=== PATIENT | female | born 1930 | race Caucasian/White ===

== ENCOUNTER 2019-04-24 01:29 | Inpatient (IN) ==
[2019-04-24 02:50] LABS: Basophils % 0.2 % (0.0-0.8); Hematocrit 37.3 VOL% (35.7-47.0); Hemoglobin 12.5 GM/DL (12.0-16.0); Immature Granulocytes % 0.6 %; Immature Granulocytes Absolute 0.06 #; Lymphocytes # 1.4 10*3/uL (1.4-4.0); Lymphocytes % 14.2 % (21.3-54.2); Mean Corpuscular HGB Conc 33.5 GM/DL (32-36); Mean Corpuscular Volume 87.1 FL (87-102); Mean Platelet Volume 10.2 FL (9.6-12.0); Platelet Count 232 T/CUMM (130-400); Red Blood Count 4.28 MC/CUMM (3.8-5.5); Red Cell Distribution Width 13.3 % (9.3-17.3)
[2019-04-24 03:04] LABS: Calcium 8.8 MG/DL (8.5-10.1); Osmolality,Calculated 279.7 MOS/KG (273-304)
[2019-04-24 03:16] LABS: Troponin I 0.162 NG/ML (0.00-0.045)
[2019-04-24] MEDS ORDERED: ENOXAPARIN 30 MG/0.3 ML SYRINGE SUBCUT STA (03:29)
[2019-04-24] MEDS ORDERED: ASPIRIN CHEW 81 MG TABLET PO STA (03:30)
[2019-04-24] MEDS ORDERED: ASPIRIN 325 MG TABLET ONE (03:41)
[2019-04-24] MEDS ORDERED: ENOXAPARIN 80 MG/0.8 ML SYRINGE SUBCUT ONE (03:41)
[2019-04-24] MEDS ORDERED: POTASSIUM CHLORIDE 20 MEQ TABLET PO STA (03:43)
[2019-04-24] MEDS ORDERED: ASPIRIN 325 MG TABLET PO STA (03:43)
[2019-04-24] MEDS ORDERED: MORPHINE 4 MG/1 ML VIAL IV PRN (06:37)
[2019-04-24] MEDS ORDERED: NITROGLYCERIN SL 0.4 MG TABLET SL PRN (06:37)
[2019-04-24] MEDS ORDERED: DOCUSATE SODIUM 100 MG CAPSULE PO PRN (06:37)
[2019-04-24] MEDS ORDERED: ALBUTEROL/IPRATROPIUM 3 ML NEB RESP TX PRN (06:37)
[2019-04-24] MEDS ORDERED: MAGNESIUM SULF RIDER 2 GM in PREMIX 1 EACH IV PRN (06:37)
[2019-04-24] MEDS ORDERED: guaiFENesin/CODEINE 5 ML LIQUID PO PRN (06:37)
[2019-04-24] MEDS ORDERED: MAGNESIUM SULF RIDER 4 GM in PREMIX 1 EACH IV PRN (06:37)
[2019-04-24] MEDS ORDERED: ACETAMINOPHEN 325 MG TABLET PO PRN (06:37)
[2019-04-24] MEDS ORDERED: ONDANSETRON 4 MG/2 ML VIAL IV PRN (06:37)
[2019-04-24] MEDS ORDERED: predniSONE 20 MG TABLET PO SCH (09:00)
[2019-04-24] MEDS ORDERED: LEVOFLOXACIN 500 MG TABLET PO SCH (09:00)
[2019-04-24] MEDS: carvediloL 3.125 MG TABLET PO SCH ×2 (10:00→21:26)
[2019-04-24] MEDS: LOSARTAN 50 MG TABLET PO SCH (10:00)
[2019-04-24] MEDS: LEVOTHYROXINE 75 MCG TABLET PO SCH (10:00)
[2019-04-24] MEDS: POTASSIUM CHLORIDE 20 MEQ TABLET PO PRN (10:00)
[2019-04-24 10:12] LABS: Troponin I 0.961 NG/ML (0.00-0.045)
[2019-04-24] MEDS ORDERED: POTASSIUM CHLORIDE 20 MEQ TABLET PO ONE (11:27)
[2019-04-24] MEDS ORDERED: diphenhydrAMINE CAP 25 MG CAPSULE PO ONE (11:27)
[2019-04-24] MEDS ORDERED: DIAZEPAM 5 MG TABLET PO ONE (11:27)
[2019-04-24] MEDS ORDERED: NITROGLYCERIN DRIP 50 MG/250 ML BOTTLE IV ONE (11:47)
[2019-04-24] MEDS ORDERED: LIDOCAINE 1% 20 ML VIAL ONE (11:47)
[2019-04-24] MEDS ORDERED: VERAPAMIL 5 MG/2 ML VIAL ONE (11:47)
[2019-04-24] MEDS: SODIUM CHLORIDE 0.45% 1,000 ML IV SCH ×2 (12:02→22:05)
[2019-04-24] MEDS ORDERED: MIDAZOLAM 2 MG/2 ML VIAL ONE (12:19)
[2019-04-24] MEDS ORDERED: HYDROmorphone 2 MG/1 ML VIAL ONE (12:19)
[2019-04-24] MEDS ORDERED: ENOXAPARIN 30 MG/0.3 ML SYRINGE ONE (12:42)
[2019-04-24] MEDS ORDERED: TIROFIBAN 5,000 MCG/100 ML PREMIX IV ONE (12:44)
[2019-04-24] MEDS ORDERED: TICAGRELOR 90 MG TABLET ONE (14:11)
[2019-04-24] MEDS ORDERED: ENOXAPARIN 80 MG/0.8 ML SYRINGE SUBCUT SCH (16:00)
[2019-04-24] MEDS: LEVOFLOXACIN 500 MG TABLET PO SCH (16:21)
[2019-04-24] MEDS: predniSONE 20 MG TABLET PO SCH (16:21)
[2019-04-24] MEDS: TICAGRELOR 90 MG TABLET PO SCH (21:25)
[2019-04-24] MEDS: cilostazoL 50 MG TABLET PO SCH (21:26)
[2019-04-24] MEDS: ASPIRIN EC 81 MG TABLET PO SCH (21:26)
[2019-04-25 04:49] LABS: Basophils % 0.2 % (0.0-0.8); Eosinophils % 0.1 % (0.00-10.9); Hematocrit 35.6 VOL% (35.7-47.0); Hemoglobin 11.7 GM/DL (12.0-16.0); Immature Granulocytes % 0.6 %; Immature Granulocytes Absolute 0.05 #; Lymphocytes # 0.9 10*3/uL (1.4-4.0); Lymphocytes % 10.1 % (21.3-54.2); Mean Corpuscular HGB Conc 32.9 GM/DL (32-36); Mean Corpuscular Volume 88.6 FL (87-102); Mean Platelet Volume 10.3 FL (9.6-12.0); Platelet Count 219 T/CUMM (130-400); Red Blood Count 4.02 MC/CUMM (3.8-5.5); Red Cell Distribution Width 13.5 % (9.3-17.3); White Blood Count 8.5 T/CUMM (4-12)
[2019-04-25 05:31] LABS: CKMB % 7.1 %; Calcium 8.5 MG/DL (8.5-10.1); Osmolality,Calculated 282.4 MOS/KG (273-304)
[2019-04-25 05:34] LABS: Thyroid Stimulating Hormone 0.862 uIU/ml (0.358-3.74)
[2019-04-25 05:36] LABS: Troponin I 1.52 NG/ML (0.00-0.045)
[2019-04-25] MEDS: SODIUM CHLORIDE 0.45% 1,000 ML IV SCH (06:40)
[2019-04-25] MEDS: TICAGRELOR 90 MG TABLET PO SCH ×2 (08:30→21:09)
[2019-04-25] MEDS: LEVOTHYROXINE 75 MCG TABLET PO SCH (08:30)
[2019-04-25] MEDS: carvediloL 3.125 MG TABLET PO SCH (08:30)
[2019-04-25] MEDS: LOSARTAN 50 MG TABLET PO SCH (08:30)
[2019-04-25] MEDS: predniSONE 20 MG TABLET PO SCH (08:30)
[2019-04-25] MEDS: LEVOFLOXACIN 500 MG TABLET PO SCH (08:30)
[2019-04-25] MEDS: ENOXAPARIN 30 MG/0.3 ML SYRINGE SUBCUT SCH (16:53)
[2019-04-25] MEDS: cilostazoL 50 MG TABLET PO SCH (21:09)
[2019-04-25] MEDS: ASPIRIN EC 81 MG TABLET PO SCH (21:09)
[2019-04-25] MEDS: carvediloL 6.25 MG TABLET PO SCH ×2 (21:09→21:28)
[2019-04-26 05:30] LABS: Basophils % 0.3 % (0.0-0.8); Eosinophils % 0.4 % (0.00-10.9); Hematocrit 36.5 VOL% (35.7-47.0); Hemoglobin 11.9 GM/DL (12.0-16.0); Immature Granulocytes % 0.5 %; Immature Granulocytes Absolute 0.05 #; Lymphocytes # 2.8 10*3/uL (1.4-4.0); Lymphocytes % 27.3 % (21.3-54.2); Mean Corpuscular HGB Conc 32.6 GM/DL (32-36); Mean Corpuscular Volume 88.8 FL (87-102); Mean Platelet Volume 10.6 FL (9.6-12.0); Neutrophils % 63.5 % (38.7-73.9); Platelet Count 273 T/CUMM (130-400); Red Blood Count 4.11 MC/CUMM (3.8-5.5); Red Cell Distribution Width 13.5 % (9.3-17.3); White Blood Count 10.4 T/CUMM (4-12)
[2019-04-26 05:39] LABS: Calcium 8.4 MG/DL (8.5-10.1); Osmolality,Calculated 282.3 MOS/KG (273-304)
[2019-04-26] MEDS: LOSARTAN 50 MG TABLET PO SCH (06:17)
[2019-04-26] MEDS: carvediloL 6.25 MG TABLET PO SCH ×3 (06:18→21:38)
[2019-04-26] MEDS: LEVOTHYROXINE 75 MCG TABLET PO SCH (08:20)
[2019-04-26] MEDS: TICAGRELOR 90 MG TABLET PO SCH ×2 (08:20→21:38)
[2019-04-26] MEDS: LEVOFLOXACIN 500 MG TABLET PO SCH (08:21)
[2019-04-26] MEDS: predniSONE 20 MG TABLET PO SCH (08:22)
[2019-04-26] MEDS: ENOXAPARIN 30 MG/0.3 ML SYRINGE SUBCUT SCH (16:31)
[2019-04-26] MEDS: cilostazoL 50 MG TABLET PO SCH (21:38)
[2019-04-26] MEDS: ASPIRIN EC 81 MG TABLET PO SCH (21:38)
[2019-04-27 04:01] LABS: Basophils % 0.2 % (0.0-0.8); Hematocrit 33.4 VOL% (35.7-47.0); Hemoglobin 11.2 GM/DL (12.0-16.0); Immature Granulocytes % 1.4 %; Immature Granulocytes Absolute 0.13 #; Lymphocytes % 21.2 % (21.3-54.2); Mean Corpuscular HGB Conc 33.5 GM/DL (32-36); Mean Corpuscular Volume 88.4 FL (87-102); Mean Platelet Volume 10.1 FL (9.6-12.0); Monocytes % 6.5 % (1.7-12.7); Neutrophils % 70.7 % (38.7-73.9); Platelet Count 214 T/CUMM (130-400); Red Blood Count 3.78 MC/CUMM (3.8-5.5); Red Cell Distribution Width 13.3 % (9.3-17.3); White Blood Count 9.5 T/CUMM (4-12)
[2019-04-27 04:16] LABS: Calcium 8.5 MG/DL (8.5-10.1); Osmolality,Calculated 288.8 MOS/KG (273-304)
[2019-04-27] MEDS: TICAGRELOR 90 MG TABLET PO SCH ×2 (08:46→21:56)
[2019-04-27] MEDS: LOSARTAN 50 MG TABLET PO SCH ×2 (08:46→21:56)
[2019-04-27] MEDS: LEVOTHYROXINE 75 MCG TABLET PO SCH (08:46)
[2019-04-27] MEDS: carvediloL 6.25 MG TABLET PO SCH ×2 (08:46→21:56)
[2019-04-27] MEDS: LEVOFLOXACIN 500 MG TABLET PO SCH (08:46)
[2019-04-27] MEDS: ALBUTEROL/IPRATROPIUM 3 ML NEB RESP TX SCH ×2 (15:44→20:40)
[2019-04-27] MEDS: ENOXAPARIN 30 MG/0.3 ML SYRINGE SUBCUT SCH (16:12)
[2019-04-27] MEDS ORDERED: SODIUM CHLORIDE 0.45% 1,000 ML IV SCH (17:00)
[2019-04-27] MEDS: cilostazoL 50 MG TABLET PO SCH (21:56)
[2019-04-27] MEDS: ASPIRIN EC 81 MG TABLET PO SCH (21:56)
[2019-04-28] MEDS: ALBUTEROL/IPRATROPIUM 3 ML NEB RESP TX SCH ×4 (00:57→18:57)
[2019-04-28 04:46] LABS: Basophils # 0.1 10*3/uL (0.0-0.2); Basophils % 0.8 % (0.0-0.8); Eosinophils # 0.1 10*3/uL (0.0-0.87); Eosinophils % 0.9 % (0.00-10.9); Hematocrit 33.4 VOL% (35.7-47.0); Hemoglobin 11.1 GM/DL (12.0-16.0); Immature Granulocytes % 1.1 %; Lymphocytes # 2.7 10*3/uL (1.4-4.0); Lymphocytes % 30.8 % (21.3-54.2); Mean Corpuscular HGB Conc 33.2 GM/DL (32-36); Mean Corpuscular Volume 88.8 FL (87-102); Mean Platelet Volume 9.8 FL (9.6-12.0); Monocytes % 11.1 % (1.7-12.7); Neutrophils % 55.3 % (38.7-73.9); Platelet Count 243 T/CUMM (130-400); Red Blood Count 3.76 MC/CUMM (3.8-5.5); Red Cell Distribution Width 13.5 % (9.3-17.3); White Blood Count 8.9 T/CUMM (4-12)
[2019-04-28 05:11] LABS: Calcium 8.5 MG/DL (8.5-10.1); Osmolality,Calculated 281.4 MOS/KG (273-304)
[2019-04-28] MEDS: LEVOTHYROXINE 75 MCG TABLET PO SCH (08:57)
[2019-04-28] MEDS: carvediloL 6.25 MG TABLET PO SCH ×2 (08:57→21:06)
[2019-04-28] MEDS: LOSARTAN 50 MG TABLET PO SCH (08:57)
[2019-04-28] MEDS: TICAGRELOR 90 MG TABLET PO SCH ×2 (08:57→21:06)
[2019-04-28] MEDS: POTASSIUM CHLORIDE 20 MEQ TABLET PO PRN ×2 (08:57→11:18)
[2019-04-28] MEDS ORDERED: LIDOCAINE 1% 20 ML VIAL ONE (12:43)
[2019-04-28] MEDS ORDERED: diphenhydrAMINE CAP 25 MG CAPSULE PO ONE (12:55)
[2019-04-28] MEDS ORDERED: DIAZEPAM 5 MG TABLET PO ONE (12:55)
[2019-04-28] MEDS ORDERED: HYDROmorphone 2 MG/1 ML VIAL ONE (13:43)
[2019-04-28] MEDS ORDERED: MIDAZOLAM 2 MG/2 ML VIAL ONE (13:43)
[2019-04-28] MEDS ORDERED: HEPARIN 5,000 UNIT/1 ML VIAL ONE (14:22)
[2019-04-28 19:43] LABS: Troponin I 0.329 NG/ML (0.00-0.045)
[2019-04-28] MEDS: cilostazoL 50 MG TABLET PO SCH (21:06)
[2019-04-28] MEDS: ASPIRIN EC 81 MG TABLET PO SCH (21:06)
[2019-04-28] MEDS: LEVOFLOXACIN 500 MG TABLET PO SCH (21:07)
[2019-04-29] MEDS: ALBUTEROL/IPRATROPIUM 3 ML NEB RESP TX SCH ×3 (00:39→13:47)
[2019-04-29 04:43] LABS: Basophils % 0.3 % (0.0-0.8); Eosinophils # 0.3 10*3/uL (0.0-0.87); Eosinophils % 3.4 % (0.00-10.9); Hematocrit 35.6 VOL% (35.7-47.0); Hemoglobin 11.6 GM/DL (12.0-16.0); Immature Granulocytes % 0.7 %; Immature Granulocytes Absolute 0.07 #; Lymphocytes # 1.7 10*3/uL (1.4-4.0); Lymphocytes % 17.7 % (21.3-54.2); Mean Corpuscular HGB Conc 32.6 GM/DL (32-36); Mean Corpuscular Volume 88.8 FL (87-102); Mean Platelet Volume 10.1 FL (9.6-12.0); Monocytes % 9.5 % (1.7-12.7); Neutrophils % 68.4 % (38.7-73.9); Platelet Count 257 T/CUMM (130-400); Red Blood Count 4.01 MC/CUMM (3.8-5.5); Red Cell Distribution Width 13.5 % (9.3-17.3); White Blood Count 9.5 T/CUMM (4-12)
[2019-04-29 05:18] LABS: Blood Urea Nitrogen 18 MG/DL (7-18); Calcium 8.1 MG/DL (8.5-10.1); Estimated Glom Filtration Rate 55 ML/MIN; Glucose 97 MG/DL (74-106); Osmolality,Calculated 276.7 MOS/KG (273-304)
[2019-04-29 05:19] LABS: Troponin I 0.788 NG/ML (0.00-0.045)
[2019-04-29 08:35] VITALS: BP 130/65
[2019-04-29] MEDS: POTASSIUM CHLORIDE 20 MEQ TABLET PO PRN (09:37)
[2019-04-29] MEDS: TICAGRELOR 90 MG TABLET PO SCH (09:38)
[2019-04-29] MEDS: LEVOTHYROXINE 75 MCG TABLET PO SCH (09:38)
[2019-04-29] MEDS: carvediloL 6.25 MG TABLET PO SCH (09:38)
[2019-04-29] MEDS ORDERED: INFLUENZA VIRUS VACCINE 0.5 ML SYRINGE IM ONE (11:53)
== END 2019-04-29 13:50 | disposition home or self-care (01) | DRG 246 ==
LOC: EDUNIT# → EDBD → N.EDINP 01:29 → N.ED 01:29 → N.TELES 05:35
PROVIDERS: ADMIT Internal Medicine; ATTEND Internal Medicine